=== PATIENT | female | born 1985 | race Caucasian/White ===

== ENCOUNTER 2025-01-22 11:47 | Emergency (ER) | payer OTHER ==
[2025-01-22] MEDS: Lidocaine 1% with EPINEPHrine 1:100,000 20 ML MDV INJECT ONE (13:14)
== END 2025-01-22 13:15 | disposition home or self-care (01) ==
LOC: JD.ED 11:47
DX: S05.32XA Ocular laceration without prolapse or loss of intraocular tissue, left eye, initial encounter (principal); Z88.5 Allergy status to narcotic agent; W29.8XXA Contact with other powered hand tools and household machinery, initial encounter; Y93.89 Activity, other specified
CPT/HCPCS: 12011; 99282; J2004; 99283